=== PATIENT | female | born 1965 | race Caucasian/White ===

== ENCOUNTER 2016-10-07 15:41 | Emergency (ER) | payer OTHER | END 2016-10-07 20:05 | disposition home or self-care (01) | LOC: ER 15:41 | DX: J02.0 Streptococcal pharyngitis (principal); Z98.84 Bariatric surgery status; Z98.890 Other specified postprocedural states; Z79.899 Other long term (current) drug therapy | CPT/HCPCS: 87400; 87880; 96372; 99282-25 ==